=== PATIENT | female | born 1955 | race Two or more races ===

== ENCOUNTER 2024-07-08 13:53 | Emergency (ER) | payer OTHER, BC ==
[~2024-07-08] VITALS: Ht 154.9 cm; Wt 59.3 kg
[~2024-07-08 13:53] MED LIST: CIPR-173 PO; FENT25DI2 TD; HYDR-4833 PO; IBUP-1456 PO; LEVO25TA6 PO; MELA10CA OR; TRAZ-227; [UNRECOGNIZED DRUG - CODE]
[2024-07-08] MEDS: SODIUM CHLORIDE 0.9% 1,000 ML IV ONE ×2 (14:30)
--- NOTE | 2024-07-08 14:35 | ED.PDOC ---
General HPI Comments 69 y.o female presents to the ED for a chief complaint of dysuria associated with back pain radiating to her right flank and suprapubic region that presented 2 days ago. Patient reports she was sent outpatient by [facility] for an US which she completed and resulted with a 1.1cm right renal stone and gallstones. Patient reports previous history of both stones which she had successful passed. Patient denies any hematuria, fever or chills. Patient was hypertensive upon ED arrival at 189/109, states she has history of HTN but is not on any medication and is managing blood pressure via diet,. Chief Complaint: Urinary Time Seen by MD: 14:19 Primary Care Provider: NADER Reviewed notes: Nurses Notes, Medications, Allergies Allergies: Coded Allergies: NO KNOWN ALLERGIES (Unverified , 07/25/14) Home Meds Reported Medications Levothyroxine Sodium (Levothyroxine Sodium) 25 Mcg Tab, 35 MCG PO QAM, MCG 11/08/17 Melatonin (MELATONIN) 10 Mg Cap, 10 MG OR QHSP, CAP 11/08/17 Ciprofloxacin Hcl (Cipro) 500 Mg Tab, 500 MG PO TID 01/06/16 Hydrocodone-Acetaminophen ([place] 5/325MG) 1 Tab Tb, 1 TAB PO TID, #90 TAB 01/05/16 Ibuprofen (Ibuprofen) 800 Mg Tab, 1 TAB PO TID, #90 TAB 1 Refill 01/05/16 Fentanyl (Fentanyl) 25 Mcg/Hr Dis, 37 MCG TD, DIS 01/05/16 Trazodone Hcl (Trazodone Hcl) 50 Mg Tab, 50 for 30 Days 01/05/16 Est Estrogens & Methyltest (Esterified Estrogens/Meth) Mtest Hs Tab, for 30 Days 01/05/16 Information Source: Patient Mode of Arrival: Ambulatory Severity: Moderate Timing: Days (2) Duration: Since onset Onset: Spontaneous Symptoms: Dysuria History of: Kidney stone Location: Suprapubic, Abdomen, (R) Flank associated signs and symptoms: Abdominal Pain, Flank Pain, Back Pain, Dysuria Past Medical History PAST MEDICAL HISTORY: Gallstones, High Lipids, HTN, Kidney Stones Surgical History: Denies all surgeries WEAPONS SPECIALIST History: No Pertinent WEAPONS SPECIALIST History Family History Family History: Unobtainable Social History Smoker: Non-Smoker Alcohol: Denies ETOH Use Drugs: Denies Drug Use Lives In: Home Constitutional: denies: chills, diaphoresis, fatigue, fever, malaise, sweats, weakness, others EENTM: denies: blurred vision, double vision, ear bleeding, ear discharge, ear drainage, ear pain, ear ringing, eye pain, eye redness, hearing loss, mouth pain, mouth swelling, nasal discharge, nose bleeding, nose congestion, nose pain, photophobia, tearing, throat pain, throat swelling, voice changes, others Respiratory: denies: cough, hemoptysis, orthopnea, SOB at rest, shortness of breath, SOB with excertion, stridor, wheezing, others Cardiovascular: denies: chest pain, dizzy spells, diaphoresis, Dyspnea on exertion, edema, irregular heart beat, left arm pain, lightheadedness, palpitations, PND, syncope, others Gastrointestinal: reports: abdominal pain; denies: abdomen distended, blood streaked bowels, constipated, diarrhea, dysphagia, difficulty swallowing, hematemesis, melena, nausea, poor appetite, poor fluid intake, rectal bleeding, rectal pain, vomiting, others Genitourinary: reports: dysuria, flank pain; denies: abnormal vagina bleeding, burning, dyspareunia, frequency, hematuria, incontinence, pain, , vagina discharge, urgency, others Neurological: denies: dizziness, fainting, headache, left sided numbness, left sided weakness, numbness, paresthesia, pre-existing deficit, right sided numbness, right sided weakness, seizure, speech problems, tingling, tremors, weakness, others Musculoskeletal: reports: back pain; denies: gout, joint pain, joint swelling, muscle pain, muscle stiffness, neck pain, others Integumetry: denies: bruises, change in color, change in hair/nails, dryness, laceration, lesions, lumps, rash, wounds, others Allergic/Immunocompromised: denies: Difficulty Healing, Frequent Infections, Hives, Itching, others Hematologic/Lymphatic: denies: anemia, blood clots, easy bleeding, easy bruising, swollen glands, others Endocrine: denies: excessive hunger, excessive sweating, excessive thirst, excessive urination, flushing, intolerance to cold, intolerance to heat, unexplained weight gain, unexplained weight loss, others Psychiatric: denies: anxiety, bipolar disorder, depression, hopeless, panic disorder, schizophrenia, sleepless, suicidal, others All Other Systems: Reviewed and Negative Physical Exam General Appearance: Moderate Distress HEENT: Normal ENT Inspection, Pharynx Normal, TMs Normal Neck: Full Range of Motion, Non-Tender, Normal, Normal Inspection Respiratory: Chest Non-Tender, Lungs Clear, No Accessory Muscle Use, No Respiratory Distress, Normal Breath Sounds Cardiovascular: No Edema, No JVD, No Murmur, No Gallop, Normal Peripheral Pulses, Regular Rate/Rhythm Breast Exam: Deferred Gastrointestinal: No Organomegaly, No Pulsatile Mass, Normal Bowel Sounds, Soft Genitalia: Deferred Pelvic: Deferred Rectal: Deferred Extremities: No calf tenderness, Normal capillary refill, Normal inspection, Normal range of motion, Non-tender, No pedal edema Musculoskeletal : Apperance: Normal Neurologic: Alert, panel edge painter II-XII nml as Tested, No Motor Deficits, Normal Affect, Normal Mood, No Sensory Deficits Cerebellar Function: Normal Reflexes: Normal Skin: Dry, Normal Color, Warm Peripheral Pulses: 3+ Radial (R), 3+ Radial (L) Lymphatic: No Adenopathy Was a procedure done? Was a procedure done?: No Differential Diagnosis Kidney stone (Female): Hepatitis, Musculoskeletal pain, Ovarian torsion, Pancreatitis, Pyelonephritis, Renal failure, Strain, Urinary obstruction, Urolithiasis Urinary Problem (Female): Pyelonephritis, Urolithiasis, UTI, Vaginitis X-Ray, Labs, Meds, VS Vital Signs Date Time Temp Pulse Resp B/P (MAP) Pulse Ox O2 Delivery O2 Flow Rate FiO2 07/08/24 14:18 98.9 93 18 189/104 (132) 96 Lab Test 07/08/24 14:40 Range/Units White Blood Count Pending Red Blood Count Pending Hemoglobin Pending Hematocrit Pending Mean Corpuscular Volume Pending Mean Corpuscular Hemoglobin Pending Mean Corpuscular Hemoglobin Concent Pending Red Cell Distribution Width Pending Platelet Count Pending Mean Platelet Volume Pending Neutrophils (%) (Auto) Pending Lymphocytes (%) (Auto) Pending Monocytes (%) (Auto) Pending Basophils (%) (Auto) Pending Neutrophils # (Auto) Pending Lymphocytes # (Auto) Pending Monocytes # (Auto) Pending Sodium Level Pending Potassium Level Pending Chloride Level Pending Carbon Dioxide Level Pending Anion Gap Pending Blood Urea Nitrogen Pending Creatinine Pending Glomerular Filtration Rate Calc Pending BUN/Creatinine Ratio Pending Serum Glucose Pending Calcium Level Pending Patient alert. Blood pressure elevated. Complaining urinary burning. Vitals stable. She had an ultrasound done few hours ago at outside facility which showed kidney stone gallstone. Establish intravenous access. Was given fluids. Was given Toradol. Explained to the patient. Continue cardiac monitoring. Time of 1ST Reevaluation: 14:31 Reevaluation 1ST: Unchanged Patient Education/Counseling: Diagnosis, Treatment, Prognosis Family Education/Counseling: No Family Present Departure 1 Departure Time of Disposition: 14:50 Impression: Primary Impression: Kidney stone Additional Impression: Gallstone Qualified Codes: K80.20 - Calculus of gallbladder without cholecystitis without obstruction Disposition: ADMITTED INPATIENT Admit to: Med Surg Condition: Guarded Critical Care Note Critical Care Time?: Yes (45 min-critical care time only) Stability Stability form required: No I personally scribed for CHACHA WEST MD ([id number]) on 07/08/24 at 14:35. Electronically submitted by Yenifer Gunter ([facility]). CHACHA WEST MD Jul 08, 2024 14:35
[2024-07-08 14:53] LABS: Basophils # (auto) 0 10 ^3/uL (0-0.2); Basophils % (auto) 0.3 % (0.0-2.0); Eosinophils # (auto) 0.1 10 ^3/uL (0-0.8); Eosinophils % (auto) 0.7 % (0.0-7.0); Hemoglobin 14.3 g/dL (12.2-16.2); Lymphocytes # (auto) 0.8 10 ^3/uL (0.4-5.4); Mean Corpuscular Hemoglobin 29.5 pg (28.0-32.0); Mean Corpuscular Hgb Conc. 33.1 g/dL (32.0-36.0); Mean Corpuscular Volume 89.2 fL (80.0-100.0); Monocytes # (auto) 0.6 10 ^3/uL (0-1.3); Monocytes % (auto) 4.9 % (0.0-12.0); Neutrophils # (auto) 11.3 10 ^3/uL (1.6-8.6); Neutrophils % (auto) 88.1 % (37.0-80.0); Nucleated Red Blood Cells % 0.1 %; Platelet Count (auto) 267 10^3/uL (140-450); Red Blood Cells 4.83 10^6/uL (4.0-5.20); Red Cell Distribution Width 12.6 % (11.8-14.3); White Blood Cell 12.8 10^3/uL (4.4-10.8)
[2024-07-08 14:57] VITALS: BP 147/84; PULSE 84; RESP 18; O2SAT 97
[2024-07-08] MEDS: KETOROLAC TROMETH 30 MG/ML 1ML VIAL IV ONE (15:08)
[2024-07-08 15:09] LABS: Chloride 102 mmol/L (98-107); Potassium 4.8 mmol/L (3.5-5.1); Sodium 138 mmol/L (136-145)
[2024-07-08 15:10] LABS: Anion Gap 4 (5-15); Calcium 9.9 mg/dL (8.7-10.4)
[2024-07-08 15:15] LABS: Glucose 102 mg/dL (74-106)
[2024-07-08 15:16] LABS: BUN/Creatinine Ratio 9.8 (10.0-20.0); Blood Urea Nitrogen 9 mg/dL (9-23)
[2024-07-08 15:25] LABS: Carbon Dioxide 32 mmol/L (20-31)
[2024-07-08 16:00] LABS: Urine Bacteria None Seen /hpf (None Seen)
[2024-07-08 16:21] LABS: Urine Blood 2+ /uL (Negative); Urine Clarity Turbid (Clear); Urine Color Colorless (Yellow); Urine Protein, UAD Negative (Negative); Urine Specific Gravity 1.004 (1.001-1.035); Urine Urobilinogen Normal (Negative); Urine WBC 250 /hpf (0 - 5); Urine pH 7.5 (5.0-9.0)
== END 2024-07-08 18:42 | disposition left against medical advice (07) ==
LOC: ER 13:53
DX: N20.0 Calculus of kidney (principal); K80.20 Calculus of gallbladder without cholecystitis without obstruction; I10 Essential (primary) hypertension; E78.5 Hyperlipidemia, unspecified; Z79.1 Long term (current) use of non-steroidal anti-inflammatories (NSAID); Z79.899 Other long term (current) drug therapy
CPT/HCPCS: 36415; 80048; 81001; 85025; 96361; 96374; 99283; J1885; J7030